=== PATIENT | male | born 1950 | race Caucasian/White ===

== ENCOUNTER 2018-02-04 10:15 | Inpatient (IN) | payer OTHER ==
[~2018-02-04] VITALS: Ht 175.3 cm; Wt 71.7 kg
[2018-02-07] MEDS ORDERED: METOPROLOL SUCC25 MG PO (17:20)
[2018-02-07] MEDS ORDERED: LOSARTAN POTASS25 MG PO (17:20)
[2018-02-07] MEDS ORDERED: ZANTAC150 MG PO (17:21)
[2018-02-14] MEDS ORDERED: INTESTINEX680 M1 PO (12:41)
[2018-02-14] MEDS ORDERED: POLY119PG PO (12:41)
[2018-02-14] MEDS ORDERED: OXYC1TAB9 PO (12:41)
== END 2018-02-14 12:50 | disposition home or self-care (01) | DRG 330 ==
LOC: ADM 10:15 → EDSTATUS 02-07 14:00 → SURH 02-09 07:29
PROVIDERS: Surgery
PROC: 0DTP4ZZ Resection of Rectum, Percutaneous Endoscopic Approach (ICD-10-PCS; 2018-02-10)
PROC: 07TC4ZZ Resection of Pelvis Lymphatic, Percutaneous Endoscopic Approach (ICD-10-PCS; 2018-02-10)
PROC: 0DJD8ZZ Inspection of Lower Intestinal Tract, Via Natural or Artificial Opening Endoscopic (ICD-10-PCS; 2018-02-10)
PROC: 30233R1 Transfusion of Nonautologous Platelets into Peripheral Vein, Percutaneous Approach (ICD-10-PCS; 2018-02-10)
PROC: 30233K1 Transfusion of Nonautologous Frozen Plasma into Peripheral Vein, Percutaneous Approach (ICD-10-PCS; 2018-02-10)
PROC: 0DTN4ZZ Resection of Sigmoid Colon, Percutaneous Endoscopic Approach (ICD-10-PCS; principal; 2018-02-10 07:00)
PROC: 30233N1 Transfusion of Nonautologous Red Blood Cells into Peripheral Vein, Percutaneous Approach (ICD-10-PCS; 2018-02-12)
PROC: BW25ZZZ Computerized Tomography (CT Scan) of Chest, Abdomen and Pelvis (ICD-10-PCS; 2018-02-12)
DX: C18.4 Malignant neoplasm of transverse colon (principal); D68.4 Acquired coagulation factor deficiency; K91.840 Postprocedural hemorrhage of a digestive system organ or structure following a digestive system procedure; D62 Acute posthemorrhagic anemia; D69.59 Other secondary thrombocytopenia; I10 Essential (primary) hypertension; K21.9 Gastro-esophageal reflux disease without esophagitis; K74.69 Other cirrhosis of liver